=== PATIENT | male | born 1970 | race Caucasian/White ===

== ENCOUNTER 2017-08-20 16:42 | Observation (INO) | payer OTHER ==
[2017-08-20] VITALS (7 sets, daily range): BP systolic 123–150; BP diastolic 65–75; PULSE 75–96; RESP 15–18; TEMP 97–98.9; O2SAT 81–100
[~2017-08-20] VITALS: Ht 170.2 cm; Wt 124.5 kg
[~2017-08-20 16:42] MED LIST: AMLO5TAB22 PO; ASPI81TA82 PO; ATEN-100 PO; ATOR80TA PO; CYCL1PAK PO; DIPH2%T PO; EZET10 PO; FENO145T2 PO; IMDU30TA PO; LISI-366 PO; METH10TA PO; METO10 PO; NITR.4 SL; PANT20 PO; PHEN37.5 PO; POTA99TA12 PO; STOO100T PO; ULTR50TA PO
--- NOTE | 2017-08-20 17:04 | PD ---
HPI Chief Complaint: Chest Pain Time Seen by Provider: 17:00 Travel History International Travel<30 days: No Contact w/Intl Traveler<30days: No Traveled to known affect area: No History of Present Illness HPI 47-year-old male with history of multiple MIs in the past, hypertension, 5 stents, presents to the ER today with substernal chest pressures that started yesterday, heart racing, heart rate in the 130s before he started his beta daniel yesterday. He states that the chest discomfort has not improved. He states his currently a 5 out of 10. He denies any nausea, vomiting, but complains of small shortness of breath. He has been coughing with small amount of phlegm. He denies any fevers or other symptoms. Modifying Factors: None Associated Signs & Symptoms: Palpitations, shortness of breath, chest discomfort Risk Factors: MIs, cardiac stent, tachycardia dysrhythmia PFSH Past Medical History Hx Anticoagulant Therapy: Yes Cancer: No Cardiac Catheterization: Yes Cardiovascular Problems: Yes High Cholesterol: Yes Coronary Artery Disease: Yes Diabetes: No Diminished Hearing: No Endocrine: No GERD: Yes Genitourinary: No Hiatal Hernia: Yes Hypertension: Yes Immune Disorder: No Musculoskeletal: Yes (Herniated disc , Chronic Back pain ) Neurologic: No Psychiatric: No Reproductive: No Respiratory: No Immunizations Current: No Myocardial Infarction: Yes Influenza Vaccination: No Past Surgical History Appendectomy: Yes Cardiac Surgery: Yes (CATH 09/30/12) Coronary Stent: Yes (5) Other Surgery: Yes Family History Family Myocardial Infarction: Yes Social History Alcohol Use: No (stop drinking - Oct 2012 ) Tobacco Use: Yes (1-5 cig per day ) Substance Use: No Allergies-Medications (Allergen,Severity, Reaction): Coded Allergies: Sulfa (Sulfonamide Antibiotics) (Unverified Allergy, Severe, swelling. , ) erythromycin base (Unverified Allergy, Severe, vomit, 07/17/17) all mycins iodine (Unverified Allergy, Severe, Anaphylaxis, 07/17/17) mold (Unverified Allergy, Severe, swelling not breath well, 07/17/17) penicillin G (Unverified Allergy, Severe, swelling vomit, 07/17/17) potassium iodide (Unverified Allergy, Severe, Anaphylaxis, 07/17/17) povidone-iodine (Unverified Allergy, Severe, Anaphylaxis, 07/17/17) red dye (Unverified Allergy, Severe, Anaphylaxis, 07/17/17) red dye # 40 is the worst. sodium iodide (Unverified Allergy, Severe, Anaphylaxis, 07/17/17) sodium iodide (Unverified Allergy, Severe, Anaphylaxis, 07/17/17) duloxetine (Unverified Allergy, Unknown, 07/17/17) Reported Meds & Prescriptions Reported Meds & Active Scripts Active Reported Tramadol (Tramadol HCl) 50 Mg Tab 100 Mg PO TID Trazodone (Trazodone HCl) 100 Mg Tablet 100 Mg PO HS PRN Benazepril (Benazepril HCl) 40 Mg Tab 40 Mg PO DAILY Fenofibrate 160 Mg Tab 160 Mg PO DAILY Nifedipine ER 24 HR (Nifedipine) 60 Mg Tab 60 Mg PO DAILY Atorvastatin (Atorvastatin Calcium) 80 Mg Tab 80 Mg PO DAILY Spironolactone 25 Mg Tab 25 Mg PO DAILY Protonix (Pantoprazole Sodium) 40 Mg Tab 40 Mg PO BID Take 30 minutes before breakfast and dinner Adderall Xr 24 HR (Amphetamine/Dextroamphetamine) 15 Mg Cap 15 Mg PO DAILY Once daily in the morning. Flexeril (Cyclobenzaprine HCl) 10 Mg Tab 10 Mg PO DAILY PRN Morphine ER (Morphine Sulfate) 30 Mg Tab 30 Mg PO TID Zetia (Ezetimibe) 10 Mg Tab 10 Mg PO DAILY Metoprolol Tartrate 50 Mg Tab 75 Mg PO BID Review of Systems Except as stated in HPI: all other systems reviewed are Neg Physical Exam Narrative GENERAL: [Well-developed middle age white male patient who is currently in mild distress. Awake and oriented 3. SKIN: Focused skin assessment warm/dry. HEAD: Atraumatic. Normocephalic. EYES: Pupils equal and round. No scleral icterus. No injection or drainage. ENT: No nasal bleeding or discharge. Mucous membranes pink and moist. NECK: Trachea midline. No JVD. CARDIOVASCULAR: Regular rate and rhythm. No murmur appreciated. Pulses are present and equal bilaterally. RESPIRATORY: No accessory muscle use. Clear to auscultation. Breath sounds equal bilaterally. GASTROINTESTINAL: Abdomen soft, non-tender, nondistended. Hepatic and splenic margins not palpable. MUSCULOSKELETAL: No obvious deformities. No clubbing. No cyanosis. No edema. NEUROLOGICAL: Awake and alert. No obvious cranial nerve deficits. Motor grossly within normal limits. Normal speech. PSYCHIATRIC: Appropriate mood and affect; insight and judgment normal. Data Data Last Documented VS Vital Signs Date Time Temp Pulse Resp B/P (MAP) Pulse Ox O2 Delivery O2 Flow Rate FiO2 08/20/17 17:11 18 99 Room Air 08/20/17 16:58 91 08/20/17 16:54 98.9 Orders Orders Electrocardiogram (08/20/17 17:01) Ckmb (Isoenzyme) Profile (08/20/17 17:) Complete Blood Count With Diff (08/20/17 17:) Comprehensive Metabolic Panel (08/20/17 17:01) Magnesium (Mg) (08/20/17 17:) Prothrombin Time / Inr (Pt) (08/20/17 17:) Act Partial Throm Time (Ptt) (08/20/17 17:01) Troponin I (08/20/17 17:01) Ecg Monitoring (08/20/17 17:) Bilateral Bp Monitoring (08/20/17 17:) Iv Access Insert/Monitor (08/20/17 17:01) Oximetry (08/20/17 17:01) Oxygen Administration (08/20/17 17:01) Sodium Chloride 0.9% Flush (Ns Flush) (08/20/17 17:15) Aspirin (Aspirin) (08/20/17 17:15) Chest, Single Ap (08/20/17 17:18) Labs Laboratory Tests Test 08/20/17 17:05 08/20/17 18:15 White Blood Count 12.7 TH/MM3 Red Blood Count 4.63 MIL/MM3 Hemoglobin 14.4 GM/DL Hematocrit 43.0 % Mean Corpuscular Volume 92.8 FL Mean Corpuscular Hemoglobin 31.1 PG Mean Corpuscular Hemoglobin Concent 33.6 % Red Cell Distribution Width 13.6 % Platelet Count 318 TH/MM3 Mean Platelet Volume 7.4 FL Neutrophils (%) (Auto) 69.5 % Lymphocytes (%) (Auto) 22.5 % Monocytes (%) (Auto) 6.9 % Eosinophils (%) (Auto) 0.7 % Basophils (%) (Auto) 0.4 % Neutrophils # (Auto) 8.8 TH/MM3 Lymphocytes # (Auto) 2.8 TH/MM3 Monocytes # (Auto) 0.9 TH/MM3 Eosinophils # (Auto) 0.1 TH/MM3 Basophils # (Auto) 0.1 TH/MM3 CBC Comment DIFF FINAL Differential Comment Prothrombin Time 10.3 SEC Prothromb Time International Ratio 0.9 RATIO Activated Partial Thromboplast Time 27.5 SEC Blood Urea Nitrogen 12 MG/DL Creatinine 1.24 MG/DL Random Glucose 91 MG/DL Albumin 3.6 GM/DL Calcium Level 8.8 MG/DL Magnesium Level 2.2 MG/DL Aspartate Amino Transf (AST/SGOT) 15 U/L Alanine Aminotransferase (ALT/SGPT) 24 U/L Sodium Level 138 MEQ/L Potassium Level 3.9 MEQ/L Chloride Level 105 MEQ/L Carbon Dioxide Level 27.4 MEQ/L Anion Gap 6 MEQ/L Estimat Glomerular Filtration Rate 62 ML/MIN [facility] Medical Decision Making Medical Screen Exam Complete: Yes Emergency Medical Condition: Yes Medical Record Reviewed: Yes Interpretation(s) EKG shows normal sinus rhythm at a rate of 92 bpm with no signs of acute ST-T changes. Last 24 hours Impressions Chest X-Ray 08/20/17 3588 Signed Impressions: Service Date/Time: Sunday, August 20, 2017 17:23 - CONCLUSION: No acute disease. Arnoldo Houston MD Laboratory Tests Test 08/20/17 17:05 08/20/17 18:15 White Blood Count 12.7 TH/MM3 (4.0-11.0) Neutrophils # (Auto) 8.8 TH/MM3 (1.8-7.7) Estimat Glomerular Filtration Rate 62 ML/MIN (>89) Differential Diagnosis Chest pains, shortness of breath, palpitations: Tachycardia dysrhythmias versus pneumonia versus ACS Narrative Course Patient has been given aspirin. EKG did not show any signs of acute changes. Workup was initiated in the ER. Physician Communication Physician Communication Case is signed out to Dr. Harper at 7 PM pending lab work. Patient will need further cardiac evaluation, awaiting lab work for further disposition. Diagnosis Primary Impression: Chest pain Admitting Information Admitting Physician Requests: it Yogesh Taylor MD Aug 20, 2017 17:04
[2017-08-20] MEDS ORDERED: SODIUM CHLORIDE 0.9% FLUSH 10 ML FLUSH IVF PRN (17:15)
[2017-08-20] MEDS ORDERED: ASPIRIN 325 MG TAB PO ONE (17:15)
[2017-08-20 17:26] LABS: AUTOMATED NEUTROPHIL # 8.8 TH/MM3 (1.8-7.7); BASOPHIL # 0.1 TH/MM3 (0-0.2); BASOPHIL % 0.4 % (0.0-2.0); EOSINOPHIL # 0.1 TH/MM3 (0-0.4); EOSINOPHIL % 0.7 % (0.0-4.0); HEMO FLAGS DIFF FINAL; LYMPH % 22.5 % (9.0-44.0); LYMPHOCYTE # 2.8 TH/MM3 (1.0-4.8); MEAN CELL VOLUME 92.8 FL (80.0-100.0); MEAN CORPUSCULAR HEMOGLOBIN 31.1 PG (27.0-34.0); MEAN CORPUSCULAR HGB CONC 33.6 % (32.0-36.0); MONO % 6.9 % (0.0-8.0); NEUT % 69.5 % (16.0-70.0); PLATELET COUNT 318 TH/MM3 (150-450); RED BLOOD COUNT 4.63 MIL/MM3 (4.50-5.90); RED CELL DISTRIBUTION WIDTH 13.6 % (11.6-17.2); WHITE BLOOD COUNT 12.7 TH/MM3 (4.0-11.0)
[2017-08-20] MEDS ORDERED: ATOR1TAB18 PO (17:41)
[2017-08-20] MEDS ORDERED: SPIR25TA PO (17:41)
[2017-08-20] MEDS ORDERED: FENO160T PO (17:41)
[2017-08-20] MEDS ORDERED: CYCL1TAB29 PO (17:41)
[2017-08-20] MEDS ORDERED: ZETI10TA5 PO (17:41)
[2017-08-20] MEDS ORDERED: PROT40TA PO (17:41)
[2017-08-20] MEDS ORDERED: ADDE15XR PO (17:41)
[2017-08-20] MEDS ORDERED: TRAM50TA PO (17:41)
[2017-08-20] MEDS ORDERED: MORP1TAB25 PO (17:41)
[2017-08-20] MEDS ORDERED: TRAZ100T6 PO (17:41)
[2017-08-20] MEDS ORDERED: METO50TA PO (17:41)
[2017-08-20] MEDS ORDERED: BENA40TA PO (17:41)
[2017-08-20] MEDS ORDERED: NIFE60TA58 PO (17:41)
--- NOTE | 2017-08-20 17:42 | RADRPT ---
EXAM DATE/TIME: 08/20/2017 17:23 [place] COMPARISON: No previous studies available for comparison. INDICATIONS : Chest pain. MEDICAL HISTORY : None. SURGICAL HISTORY : None. ENCOUNTER: Initial ACUITY: 1 day PAIN SCORE: 12/11 LOCATION: Bilateral chest FINDINGS: A single view of the chest demonstrates the lungs to be symmetrically aerated without evidence of mas s, infiltrate or effusion. The cardiomediastinal contours are unremarkable. Osseous structures are intact. CONCLUSION: No acute disease. Arnoldo Houston MD on August 20, 2017 at 17:40 Board Certified Radiologist. This report was verified electronically.
[2017-08-20 17:49] LABS: APTT (PATIENT) 27.5 SEC (24.3-30.1); INTERNATIONAL NORMALIZED RATIO 0.9 RATIO; PROTHROMBIN TIME - PATIENT 10.3 SEC (9.8-11.6)
[2017-08-20 19:05] LABS: ALT (GPT) 24 U/L (12-78); ANION GAP 6 MEQ/L (5-15); AST (GOT) 15 U/L (15-37); BICARBONATE 27.4 MEQ/L (21.0-32.0); BLOOD UREA NITROGEN 12 MG/DL (7-18); CHLORIDE 105 MEQ/L (98-107); GLOMERULAR FILTRATION RATE 62 ML/MIN (>89); MAGNESIUM 2.2 MG/DL (1.5-2.5); POTASSIUM 3.9 MEQ/L (3.5-5.1); SODIUM (NA) 138 MEQ/L (136-145)
[2017-08-20 19:09] LABS: ALKALINE PHOSPHATASE 46 U/L (45-117); TOTAL BILIRUBIN ADULT 0.3 MG/DL (0.2-1.0)
[2017-08-20 19:13] LABS: CREATINE KINASE 80 U/L (39-308)
[2017-08-20] MEDS: NITROGLYCERIN 0.4 MG SL 25 TABS/BTL SL SCH ×3 (20:47→20:55)
[2017-08-20] MEDS ORDERED: IOHEXOL 350 MG/ML 100 ML BTL (for Cath Lab) OTHER ONE (21:06)
--- NOTE | 2017-08-20 21:33 | PD ---
Physical Exam Date Seen by Provider: Aug 20, 2017 Data Data Last Documented VS Vital Signs Date Time Temp Pulse Resp B/P (MAP) Pulse Ox O2 Delivery O2 Flow Rate FiO2 08/20/17 20:52 75 15 123/65 (84) 100 08/20/17 17:11 Room Air 08/20/17 16:54 98.9 Orders Orders Electrocardiogram (08/20/17 17:01) Ckmb (Isoenzyme) Profile (08/20/17 17:01) Complete Blood Count With Diff (08/20/17 17:) Comprehensive Metabolic Panel (08/20/17 17:01) Magnesium (Mg) (08/20/17 17:01) Prothrombin Time / Inr (Pt) (08/20/17 17:01) Act Partial Throm Time (Ptt) (08/20/17 17:01) Troponin I (08/20/17 17:01) Ecg Monitoring (08/20/17 17:01) Bilateral Bp Monitoring (08/20/17 17:01) Iv Access Insert/Monitor (08/20/17 17:) Oximetry (08/20/17 17:01) Oxygen Administration (08/20/17 17:01) Sodium Chloride 0.9% Flush (Ns Flush) (08/20/17 17:15) Aspirin (Aspirin) (08/20/17 17:15) Chest, Single Ap (08/20/17 17:18) Nitroglycerin Sl (Nitrostat Sl) (08/20/17 20:45) Admit Order (Ed Use Only) (08/20/17 21:03) Activity Bed Rest With Brp (08/20/17 21:05) Vital Signs (Adult) Q4H (08/20/17 21:05) Cardiac Rhythm .As Directed (08/20/17 21:05) Notify Dr: Other .PRN (08/20/17 21:05) Notify Parameters (08/20/17 21:05) Ckmb (Isoenzyme) Profile (08/20/17 21:05) Ckmb (Isoenzyme) Profile (08/21/17 00:05) Troponin I (08/20/17 21:05) Troponin I (08/21/17 00:05) Electrocardiogram (08/20/17 21:05) Electrocardiogram (08/21/17 00:05) ^ Obtain (08/20/17 21:05) Avionics Repair Technician / Telemetry [email or web address] (08/20/17 21:05) Labs Laboratory Tests Test 08/20/17 17:05 08/20/17 18:15 White Blood Count 12.7 TH/MM3 Red Blood Count 4.63 MIL/MM3 Hemoglobin 14.4 GM/DL Hematocrit 43.0 % Mean Corpuscular Volume 92.8 FL Mean Corpuscular Hemoglobin 31.1 PG Mean Corpuscular Hemoglobin Concent 33.6 % Red Cell Distribution Width 13.6 % Platelet Count 318 TH/MM3 Mean Platelet Volume 7.4 FL Neutrophils (%) (Auto) 69.5 % Lymphocytes (%) (Auto) 22.5 % Monocytes (%) (Auto) 6.9 % Eosinophils (%) (Auto) 0.7 % Basophils (%) (Auto) 0.4 % Neutrophils # (Auto) 8.8 TH/MM3 Lymphocytes # (Auto) 2.8 TH/MM3 Monocytes # (Auto) 0.9 TH/MM3 Eosinophils # (Auto) 0.1 TH/MM3 Basophils # (Auto) 0.1 TH/MM3 CBC Comment DIFF FINAL Differential Comment Prothrombin Time 10.3 SEC Prothromb Time International Ratio 0.9 RATIO Activated Partial Thromboplast Time 27.5 SEC Blood Urea Nitrogen 12 MG/DL Creatinine 1.24 MG/DL Random Glucose 91 MG/DL Total Protein 6.8 GM/DL Albumin 3.6 GM/DL Calcium Level 8.8 MG/DL Magnesium Level 2.2 MG/DL Alkaline Phosphatase 46 U/L Aspartate Amino Transf (AST/SGOT) 15 U/L Alanine Aminotransferase (ALT/SGPT) 24 U/L Total Bilirubin 0.3 MG/DL Sodium Level 138 MEQ/L Potassium Level 3.9 MEQ/L Chloride Level 105 MEQ/L Carbon Dioxide Level 27.4 MEQ/L Anion Gap 6 MEQ/L Estimat Glomerular Filtration Rate 62 ML/MIN Total Creatine Kinase 80 U/L Troponin I LESS THAN 0.02 NG/ML [facility] Medical Record Reviewed: Yes Supervised Visit with SUSHMA: No Narrative Course Please see previous provider's chart for full hpi and workup of patient 47-year-old male with history of coronary artery disease, presents to emergency with complaints of chest pain. Patient is chest pain-free after 1 sublingual nitroglycerin. EKG with no concerning st or t wave changes. Plan to obs in chest pain unit. Patient agreeable to plan of care Diagnosis Primary Impression: Chest pain Admitting Information Admitting Physician Requests: Observation Rochelle Harper DO Aug 20, 2017 21:32
[2017-08-20 22:41] LABS: CREATINE KINASE 78 U/L (39-308)
[2017-08-21] VITALS (12 sets, daily range): BP systolic 107–146; BP diastolic 67–80; PULSE 68–90; RESP 18–22; TEMP 97.5–98.3; O2SAT 95–98
[2017-08-21 00:45] LABS: CREATINE KINASE 64 U/L (39-308)
[2017-08-21] MEDS ORDERED: CYCLOBENZAPRINE HCL 10 MG TAB PO PRN (08:30)
[2017-08-21] MEDS ORDERED: REGADENOSON INJ 0.4 MG/5 ML SYR ONE (09:57)
[2017-08-21] MEDS ORDERED: METOPROLOL TARTRATE 50 MG TAB PO SCH (10:00)
--- NOTE | 2017-08-21 10:17 | HHI.HP ---
HPI Primary Care Physician Non-Staff Chief Complaint Fast heart rate History of Present Illness This is a 47-year-old male with history of CAD that presents to ED via private vehicle with a complaint of elevated heart rate. Patient states that he was told by his primary care physician no longer could get atenolol and he ran out of it one week ago. He states his heart rate was high as 148 yesterday and it would not happen he started get some discomfort in his chest and some nausea. He states his physician recent change him to metoprolol. He began that yesterday. He states it is not same type discomfort he gets with his heart issues. He is currently not followed by wire drawer. The discomfort was a 5 out of 10. Mildly short of breath. Upon reviewing records she had an abnormal Lexiscan in 2015 followed by cardiac catheterization by Dr. Grimes showing a totally excluded distal circumflex and RCA with collateralization. He states he is compliant with all medications. Review of Systems General: Patient denies fevers, chills recent, and recent travel HEENT: Patient denies headache, sore throat, difficulty swallowing. Cardiovascular: Has the chest discomfort as mentioned above. States heart rate has been elevated prior to getting metoprolol. Denies sensation of heart beating irregularly. No syncope. Denies diaphoresis. Respiratory: Mildly short of breath. Denies inspirational chest discomfort. Denies coughing wheezing or hemoptysis. GI: Nauseous. Patient denies vomiting, diarrhea, abdominal pain, bloody stools. Musculoskeletal: Patient denies joint pain or edema. Denies calf pain or edema. Neurovascular: Patient denies numbness, tingling, weakness in extremities. Denies headache. Endocrine: Denies polyuria and polydipsia. Hematologic: Denies easy bruising. Skin: Denies rash or itching. Past Family Social History Allergies: Coded Allergies: Sulfa (Sulfonamide Antibiotics) (Unverified Allergy, Severe, swelling. , ) erythromycin base (Unverified Allergy, Severe, vomit, 07/17/17) all mycins iodine (Unverified Allergy, Severe, Anaphylaxis, 07/17/17) mold (Unverified Allergy, Severe, swelling not breath well, 07/17/17) penicillin G (Unverified Allergy, Severe, swelling vomit, 07/17/17) potassium iodide (Unverified Allergy, Severe, Anaphylaxis, 07/17/17) povidone-iodine (Unverified Allergy, Severe, Anaphylaxis, 07/17/17) red dye (Unverified Allergy, Severe, Anaphylaxis, 07/17/17) red dye # 40 is the worst. sodium iodide (Unverified Allergy, Severe, Anaphylaxis, 07/17/17) sodium iodide (Unverified Allergy, Severe, Anaphylaxis, 07/17/17) duloxetine (Unverified Allergy, Unknown, 07/17/17) Past Medical History CAD. Hypertension, hyperlipidemia, GERD. Denies diabetes. Past Surgical History Cardiac catheterizations with interventions. Most recently cardiac catheterization chills and 15 with medical management. Reported Medications Reported Meds & Active Scripts Active Reported Tramadol (Tramadol HCl) 50 Mg Tab 100 Mg PO TID Trazodone (Trazodone HCl) 100 Mg Tablet 100 Mg PO HS PRN Benazepril (Benazepril HCl) 40 Mg Tab 40 Mg PO DAILY Fenofibrate 160 Mg Tab 160 Mg PO DAILY Nifedipine ER 24 HR (Nifedipine) 60 Mg Tab 60 Mg PO DAILY Atorvastatin (Atorvastatin Calcium) 80 Mg Tab 80 Mg PO DAILY Spironolactone 25 Mg Tab 25 Mg PO DAILY Protonix (Pantoprazole Sodium) 40 Mg Tab 40 Mg PO BID Take 30 minutes before breakfast and dinner Adderall Xr 24 HR (Amphetamine/Dextroamphetamine) 15 Mg Cap 15 Mg PO DAILY Once daily in the morning. Flexeril (Cyclobenzaprine HCl) 10 Mg Tab 10 Mg PO DAILY PRN Morphine ER (Morphine Sulfate) 30 Mg Tab 30 Mg PO TID Zetia (Ezetimibe) 10 Mg Tab 10 Mg PO DAILY Metoprolol Tartrate 50 Mg Tab 75 Mg PO BID Active Ordered Medications Current Medications Medications (Trade) Dose Ordered Sig/Gretta Route Start Time Stop Time Status Last Admin (NS Flush) 2 ml UNSCH PRN IVF 08/20/17 17:15 (Lipitor) 80 mg DAILY PO 08/21/17 10:00 (Flexeril) 10 mg DAILY PRN PO 08/21/17 08:30 (Zetia) 10 mg DAILY PO 08/21/17 10:00 (Oramorph Sr) 30 mg TID PO 08/21/17 09:00 UNV (Procardia Xl) 60 mg DAILY PO 08/21/17 10:00 (Protonix) 40 mg BID PO 08/21/17 10:00 (Aldactone) 25 mg DAILY PO 08/21/17 10:00 (Ultram) 100 mg TID PRN PO 08/21/17 08:30 (Prinivil) 40 mg DAILY PO 08/21/17 10:00 (Tricor) 145 mg DAILY PO 08/21/17 10:00 Non-Formulary Medication 100 mg HS PRN PO 08/21/17 08:30 UNV (Lopressor) 75 mg BID PO 08/21/17 10:00 Family History There is family history of CAD. Social History Patient may smoke an occasional cigarette. Denies alcohol. Denies illicit drugs. Physical Exam Vital Signs Vital Signs Date Time Temp Pulse Resp B/P (MAP) Pulse Ox O2 Delivery O2 Flow Rate FiO2 08/21/17 08:20 98.3 90 22 138/67 (90) 96 08/21/17 07:30 68 08/21/17 04:46 97.8 89 18 131/70 (90) 96 08/21/17 04:01 72 08/21/17 00:01 84 08/20/17 23:00 96 08/20/17 22:50 97.0 82 16 136/68 (90) 98 08/20/17 20:52 75 15 123/65 (84) 100 08/20/17 20:52 15 08/20/17 19:20 82 15 141/69 (93) 100 08/20/17 17:11 18 99 Room Air 08/20/17 16:58 91 18 97 Room Air 08/20/17 16:54 98.9 85 18 136/65 (88) 97 08/20/17 16:46 98.3 91 16 150/75 (100) 99 Physical Exam GENERAL: This is a well-nourished, well-developed patient, in no apparent distress. Patient speaks in clear complete sentences. Patient is pleasant. He is obese at 130 kg. HEENT: Head is atraumatic and normocephalic. Neck is supple without lymphadenopathy and trachea is midline. No JVD or carotid bruits. CARDIOVASCULAR: Regular rate and rhythm without murmurs, gallops, or rubs. RESPIRATORY: Clear to auscultation. Breath sounds equal bilaterally. No wheezes , rales, or rhonchi. Chest wall is nontender. No use of accessory muscles. GASTROINTESTINAL: Abdomen is nontender, nondistended. Abdomen soft. No obvious pulsatile mass or bruit. No CVA tenderness. Strong femoral pulses bilaterally. Normal bowel sounds in all quadrants. MUSCULOSKELETAL: Patient is moving upper and lower extremities freely. No calf tenderness or edema, no Homans sign. Strong pulses in upper and lower extremities. NEUROLOGICAL: Patient is alert and oriented. Cranial nerves 2-12 are grossly intact. No focal deficits and speech is clear. SKIN: No rash and turgor is normal. Laboratory Laboratory Tests Test 08/20/17 17:05 08/20/17 18:15 08/20/17 21:52 08/21/17 00:10 White Blood Count 12.7 Red Blood Count 4.63 Hemoglobin 14.4 Hematocrit 43.0 Mean Corpuscular Volume 92.8 Mean Corpuscular Hemoglobin 31.1 Mean Corpuscular Hemoglobin Concent 33.6 Red Cell Distribution Width 13.6 Platelet Count 318 Mean Platelet Volume 7.4 Neutrophils (%) (Auto) 69.5 Lymphocytes (%) (Auto) 22.5 Monocytes (%) (Auto) 6.9 Eosinophils (%) (Auto) 0.7 Basophils (%) (Auto) 0.4 Neutrophils # (Auto) 8.8 Lymphocytes # (Auto) 2.8 Monocytes # (Auto) 0.9 Eosinophils # (Auto) 0.1 Basophils # (Auto) 0.1 CBC Comment DIFF FINAL Differential Comment Prothrombin Time 10.3 Prothromb Time International Ratio 0.9 Activated Partial Thromboplast Time 27.5 Blood Urea Nitrogen 12 Creatinine 1.24 Random Glucose 91 Total Protein 6.8 Albumin 3.6 Calcium Level 8.8 Magnesium Level 2.2 Alkaline Phosphatase 46 Aspartate Amino Transf (AST/SGOT) 15 Alanine Aminotransferase (ALT/SGPT) 24 Total Bilirubin 0.3 Sodium Level 138 Potassium Level 3.9 Chloride Level 105 Carbon Dioxide Level 27.4 Anion Gap 6 Estimat Glomerular Filtration Rate 62 Total Creatine Kinase 80 78 64 Troponin I LESS THAN 0.02 LESS THAN 0.02 LESS THAN 0.02 Result Diagram: 08/20/17 1705 08/20/17 181 Imaging Last 48 hours Impressions Chest X-Ray 08/20/17 1718 Signed Impressions: Service Date/Time: Sunday, August 20, 2017 17:23 - CONCLUSION: No acute disease. Arnoldo Houston MD Course EKGs are sinus rhythm without significant ST segment depressions or elevations. Caprini VTE Risk Assessment Caprini VTE Risk Assessment: No/Low Risk (score <= 1) Caprini Risk Assessment Model Point Value = 1 Point Value = 2 Point Value = 3 Point Value = 5 Age 41-60 Minor surgery BMI > 25 kg/m2 Swollen legs Varicose veins or History of unexplained or recurrent spontaneous Oral contraceptives or hormone replacement Sepsis (< 1 month) Serious lung disease, including pneumonia (< 1 month) Abnormal pulmonary function Acute myocardial infarction Congestive heart failure (< 1 month) History of inflammatory bowel disease Medical patient at bed rest Age 61-74 Arthroscopic surgery Major open surgery (> 45 min) Laparoscopic surgery (> 45 min) Malignancy Confined to bed (> 72 hours) Immobilizing plaster cast Central venous access Age >= 75 History of VTE Family history of VTE Factor V Leiden Prothrombin [id number] Lupus anticoagulant Anticardiolipin antibodies Elevated serum homocysteine Heparin-induced thrombocytopenia Other congenital or acquired thrombophilia Stroke (< 1 month) Elective arthroplasty Hip, pelvis, or leg fracture Acute spinal cord injury (< 1 month) Prophylaxis Regimen Total Risk Factor Score Risk Level Prophylaxis Regimen 0-1 Low Early ambulation 2 Moderate Order ONE of the following: *Sequential Compression Device (SCD) *Heparin 5000 units SQ BID 3-4 Higher Order ONE of the following medications: *Heparin 5000 units SQ TID *Enoxaparin/Lovenox 40 mg SQ daily (WT < 150 kg, CrCl > 30 mL/min) *Enoxaparin/Lovenox 30 mg SQ daily (WT < 150 kg, CrCl > 10-29 mL/min) *Enoxaparin/Lovenox 30 mg SQ BID (WT < 150 kg, CrCl > 30 mL/min) AND/OR *Sequential Compression Device (SCD) 5 or more Highest Order ONE of the following medications: *Heparin 5000 units SQ TID (Preferred with Epidurals) *Enoxaparin/Lovenox 40 mg SQ daily (WT < 150 kg, CrCl > 30 mL/min) *Enoxaparin/Lovenox 30 mg SQ daily (WT < 150 kg, CrCl > 10-29 mL/min) *Enoxaparin/Lovenox 30 mg SQ BID (WT < 150 kg, CrCl > 30 mL/min) AND *Sequential Compression Device (SCD) Assessment and Plan Assessment and Plan * Chest pain: Patient has history of CAD. He has had serial cardiac enzymes and EKGs for ruling out purposes and has been seen by Dr. Maury Grimes of cardiology in the chest [facility]. He will undergo a Lexiscan be discharged nonischemic. * CAD: We'll reassess with stress testing. He needs to make arrangements to follow-up with outpatient wire drawer. * Hypertension: Continue current medication. * Hyperlipidemia: Continue current medication. * GERD: Continue current medication. Patient is stable at this time. He is agreeable to this plan. Jesse Jerez Aug 21, 2017 10:16
[2017-08-21] MEDS ORDERED: MORPHINE SULFATE 30 MG CONTROLLED RELEASE TAB PO SCH (11:00)
--- NOTE | 2017-08-21 11:18 | EKG ---
Date Performed: 08/21/2017 Time Performed: 00:25:45 PTAGE: 47 years EKG: Sinus rhythm INFERIOR MYOCARDIAL INFARCTION ABNORMAL ECG PREVIOUS TRACING : 08/20/2017 22.11 Since previous tracing, no significant change noted DOCTOR: Maury Grimes Interpretating Date/Time 08/21/2017 11:18:14
--- NOTE | 2017-08-21 11:19 | EKG ---
Date Performed: 08/20/2017 Time Performed: 16:52:47 PTAGE: 47 years EKG: Sinus rhythm INFERIOR NE INDETERMINANT AGE NO PREVIOUS TRACING DOCTOR: Maury Grimes Interpretating Date/Time 08/21/2017 11:19:42
--- NOTE | 2017-08-21 11:19 | EKG ---
Date Performed: 08/20/2017 Time Performed: 22:11:21 PTAGE: 47 years EKG: Sinus rhythm INFERIOR GA PREVIOUS TRACING : 08/20/2017 16.52 Since previous tracing, no significant change noted DOCTOR: Maury Grimes Interpretating Date/Time 08/21/2017 11:18:54
[2017-08-21] MEDS: ATORVASTATIN 80 MG TAB PO SCH (12:23)
[2017-08-21] MEDS: traMADol HCL 50 MG TAB PO PRN ×2 (12:23→20:04)
[2017-08-21] MEDS: SPIRONOLACTONE 25 MG TAB PO SCH (12:23)
[2017-08-21] MEDS: METOPROLOL TARTRATE 25 MG TAB PO SCH ×2 (12:24→20:04)
[2017-08-21] MEDS: PANTOPRAZOLE SOD 40 MG DELAYED RELEASE TAB PO SCH ×2 (12:24→20:04)
[2017-08-21] MEDS: EZETIMIBE 10 MG TAB PO SCH (12:24)
[2017-08-21] MEDS: FENOFIBRATE 145 MG TAB PO SCH (12:24)
[2017-08-21] MEDS: NIFEdipine 60 MG SUSTAINED RELEASE TAB PO SCH (12:24)
[2017-08-21] MEDS: LISINOPRIL 20 MG TAB PO SCH (12:25)
--- NOTE | 2017-08-21 13:51 | RADRPT ---
EXAM DATE/TIME: 08/21/2017 09:29 [place] COMPARISON: MYOCARDIAL PERF PHARM SPECT, GATED W/EF, July 22, 2014, 9:08. INDICATIONS : Chest pain for one day. Angina. DOSE: 35.0 mCi Tc99m Myoview at stress. 11.0 mCi Tc99m Myoview at rest. 0.4 mg Lexiscan STRESS SYMPTOMS: Chest tightness. EJECTION FRACTION: 66% MEDICAL HISTORY : Hypertension. SURGICAL HISTORY : Appendectomy. Coronary artery stent. ENCOUNTER: Initial ACUITY: 1 day PAIN SCALE: 5/10 LOCATION: Substernal chest TECHNIQUE: The patient underwent pharmacologic stress with infusion of prescribed dose. Continuous ECG tracing was monitored during stress. Gated SPECT imaging was performed after stress and conventional SPECT i maging was performed at rest. The examination was performed on a SPECT/CT scanner, both attenuation and non-corrected datasets were reviewed. FINDINGS: DISTRIBUTION: The maximum perfused segment at stress is in the septal wall. Image set was normalized to this locati on PERFUSION STUDY: The pattern of perfusion at stress shows 23% redistribution in segments of the anterior wall and the apex concerning for ischemia. Similar findings are identified in the high inferior wall/base. GATED STUDY: Mild septal hypokinesis with preserved ejection fraction. CONCLUSION: 1. Multiple areas of ischemia. 20-30% redistribution in segments of the anterior and inferior segment s the as well as the apex. Findings could be explained by an LAD lesion with left coronary dominance. 2. Mild septal hypokinesis with preserved ejection fraction RISK CATEGORY: High (>3% Annual Mortality Rate) Anjel Treviño MD on August 21, 2017 at 13:34 Board Certified Radiologist. This report was verified electronically.
[2017-08-21] MEDS ORDERED: methylPREDNISolone SOD SUCC 125 MG/2 ML VIAL IV PUSH ONE (14:30)
[2017-08-21] MEDS ORDERED: FAMOTIDINE 20 MG/2 ML VIAL IV PUSH ONE (14:30)
[2017-08-21] MEDS ORDERED: HEPARIN-NS/PF INJ 1,000 ML ONE (15:24)
[2017-08-21] MEDS ORDERED: MIDAZOLAM HCL 5 MG/5 ML VIAL ONE ×2 (15:26→15:48)
[2017-08-21] MEDS ORDERED: diphenhydrAMINE HCL 50 MG/ML VIAL ONE (15:29)
--- NOTE | 2017-08-21 16:07 | MB ---
cc: REBECCA KAYE DATE OF CONSULTATION: 08/21/2017 HISTORY OF PRESENT ILLNESS A 47-year-old white male with a history of coronary artery disease with total occlusion of the distal circumflex in the right coronary artery with collaterals on the catheterization in 2014, presented with elevated heart rate and chest pain. He ran out of his beta-daniel recently. He also has had mild shortness of breath. His nuclear marker perfusion study was abnormal and showed anterior, inferior and apical ischemia with overall preserved left ventricular systolic function. PAST MEDICAL HISTORY Positive for: 1. Coronary artery disease as above. 2. History of hypertension. 3. Dyslipidemia. 4. Gastroesophageal reflux disease. 5. Previous coronary interventions. MEDICATIONS Medications include: 1. Tramadol. 2. Trazadone. 3. Benazepril. 4. Fenofibrate. 5. Nifedipine ER. 6. Atorvastatin 80. 7. Spironolactone. 8. Protonix. 9. Adderall. 10. Flexeril. 11. Morphine. 12. Zetia. 13. Metoprolol. ALLERGIES SULFA, ERYTHROMYCIN, IODINE, MOLD, PENICILLIN, POTASSIUM IODIDE, POVIDONE IODIDE, RED DYE, SODIUM IODIDE, DULOXETINE. SOCIAL HISTORY The patient smokes cigarettes occasionally. He does not drink alcohol. FAMILY HISTORY Positive for heart disease. REVIEW OF SYSTEMS Otherwise negative. PHYSICAL EXAMINATION VITAL SIGNS: Blood pressure 138/67, pulse 90 and regular. HEENT: Negative. NECK: 2+ carotid upstrokes. No bruits. LUNGS: Clear. HEART: Regular with no murmur, gallop or rub. ABDOMEN: Soft, no bruits. EXTREMITIES: No edema. 2+ distal pulses. NEUROLOGIC: Grossly intact. SKIN: With multiple tattoos. EKG Reviewed and showed normal sinus rhythm with normal axis intervals and small inferior Q-waves. LABORATORY DATA Hemoglobin 14.4, potassium 3.9, creatinine 1.2, troponin negative x3. CK 80, 78, and 64. AST and ALT normal. DIAGNOSIS 1. Angina. 2. Abnormal nuclear marker perfusion study. 3. Multivessel coronary artery disease. 4. Hypertension. 5. Dyslipidemia. 6. History of smoking. DISPOSITION Mr. Terry will undergo cardiac catheterization and coronary intervention if necessary. He understands the risks and benefits and wishes to proceed. He has been premedicated for his contrast allergy. We will continue aggressive medical management of his cardiac risk factors. MD MARIXA Rocha/FRANCIA /3:11 PM /3:26 PM
--- NOTE | 2017-08-21 16:39 | CATHPROC ---
Startist HIS Report Study Information Study Number Admission Scheduled Start Study Start [id number] Aug 20 2017 9:05PM 08/21/2017 Aug 21 2017 3:19PM [place] Service Cardiac Catheterization Admit Source Facility Department Emergency department [facility] - Spanish Literature Professor Physician and Clinical Staff Initial Maria A De La Cruz Motorcycle Repairer Clary Gillespie,GREGORY Other Lucas Dunne RCIS(BS) Recorder Kasandra Zuniga,(R) (BS) Scrub Zina Wright RCIS TECH2 Procedures Performed Procedure Location (Site) Vessel Name Angiogram LV LV Ventricle Coronary Angiograms LCA Left Coronary Coronary Angiograms RCA Right Coronary L Heart Cath Equipment Time Business Account Specialist Description Size Mfg Part Number Used/Scraped TRANSDUCER, TRVicept TherapeuticsAVE [id number] 15:21 Howbuy * Used W/STOCKCOCK *[id number] 16:18 Nasseo MEDICAL VASCADE, FR5 CLOSURE SYSTEM FR 5 Used *[id number] *[id number] *[id number] *[id number] 15:21 MEDLINE INDUSTRIES PACK, CCL CUSTOM * Used *[id number] 15:21 Dealdrive PACER PEN, SKIN DUAL W/ RULER * Used *[id number] 15:21 [employer] WIRE, 3MMJ .035 180CM 180CM Used *[id number] PROBE COVER, STERILE [id number] 15:21 Shareable Social * Used ULTRASOUND W/ GEL *[id number] 15:21 NAMIC MANIFOLD, 4 PORT * Used *[id number] 15:21 NAMIC TUBING, HIGH PRESSURE 48" 48" Used *[id number] 16:06 NYCOMED OMNIPAQUE, 300 MG, 50ML 50ML [id number] Used 15:21 NYCOMED OMNIPAQUE, 350 MG, 150ML 150ML [id number] Used [id number] 15:21 [employer] MEDICAL BLANKET,WARM AIR CCL * Used *[id number] 15:21 TERUMO MEDICAL SHEATH, FR5 TERUMO (10CM) FR 5 Used *[id number] History: Current Medications Medication Dosage/Unit Route Frequency Last Date/Time Taken ASA History: Allergies Allergy Reaction Sulfa (Sulfonamide Antibiotics) swelling. potassium iodide Anaphylaxis sodium iodide Anaphylaxis erythromycin base vomit iodine Anaphylaxis povidone-iodine Anaphylaxis penicillin G swelling vomit duloxetine red dye Anaphylaxis mold swelling not breath well History: Risk Factors Family History of Hypertension Dyslipidemia Previous RI Previous Heart Failure Premature CAD Yes Yes Yes Yes Yes Prior Valve Prior PCI Prior PCIDate Prior CABG Surgery No Yes 08/02/2014 No Cerebrovascular Peripheral Artery Chronic Lung On Dialysis Diabetes Disease Disease Disease No No No Yes No History: Symptoms/Diagnosis Selection Items Chest pain History: Stress Tests Stress or Imaging Studies Performed Yes Standard Exercise Stress Test No Stress Echo No Stress Test SPECT Yes Stress Test CMR No Cardiac CTA Coronary Calcium Score No No History: Other Current Smoker Method Packs a Day Years Used Pack Years Yes Cigarettes 1 30 30 Labs Hgb (g/dl) Hct (%) WBC (l/cumm) Platelets (thousands) 11.60-17.00 35.00-51.00 4.00-11.00 150.00-450.00 14.4 43 12.7 318 Glucose (mg/dl) BUN (mg/dl) Creatinine (mg/dl) BUN:Creatinine (1:x) 74.00-106.00 7.00-18.00 0.50-1.30 10.00-20.00 91 12 1.2 10 Na (meq/l) K (meq/l) 136.00-145.00 3.50-5.10 138 3.9 Troponin I (ng/ml) CPK-MB (ng/ML) 0.02-0.05 0.50-3.60 0.02 Not Drawn Medication Medication Total Dose (Bolus/Oral) Medication Total Dosage/Unit 1% XYLOCAINE 20 mL BENADRYL 50 mg FENTANYL 200 mcg OXYGEN 2 l/min VERSED 8 mg Medications (Bolus/Oral) Medication Time Given Dosage/Unit Administered By Reason BENADRYL 08/21/2017 3:30:12 PM 50 mg Clary Gillespie 50 mg BENADRYL given in lab by Clary Gillespie RN in Left Antecubital via Peripheral IV. OXYGEN 08/21/2017 3:30:55 PM 2 l/min Clary Gillespie 2 l/min OXYGEN given in lab by Clary Gillespie, GREGORY via Nasal. VERSED 08/21/2017 3:33:33 PM 2 mg Clary Gillespie 2 mg VERSED given in lab by Clary Gillespie, GREGORY in Left Antecubital via Peripheral IV. FENTANYL 08/21/2017 3:34:42 PM 50 mcg Hesher, Clary 50 mcg FENTANYL given in lab by Clary Gillespie RN in Left Antecubital via Peripheral IV. FENTANYL 08/21/2017 3:37:41 PM 25 mcg Hesher, Clary 25 mcg FENTANYL given in lab by Clary Gillespie RN in Left Antecubital via Peripheral IV. VERSED 08/21/2017 3:38:01 PM 2 mg Hesher, Clary 2 mg VERSED given in lab by Clary Gillespie RN in Left Antecubital via Peripheral IV. VERSED 08/21/2017 3:46:13 PM 1 mg Hesher, Clary 1 mg VERSED given in lab by Clary Gillespie RN in Left Antecubital via Peripheral IV. FENTANYL 08/21/2017 3:47:30 PM 25 mcg Hesher, Clary 25 mcg FENTANYL given in lab by Clary Gillespie RN in Left Antecubital via Peripheral IV. VERSED 08/21/2017 3:53:20 PM 1 mg Hesher, Clary 1 mg VERSED given in lab by Clary Gillespie RN in Left Antecubital via Peripheral IV. FENTANYL 08/21/2017 3:54:14 PM 25 mcg Hesher, Clary 25 mcg FENTANYL given in lab by Clary Gillespie RN in Left Antecubital via Peripheral IV. VERSED 08/21/2017 3:58:54 PM 1 mg Hesher, Clary 1 mg VERSED given in lab by Clary Gillespie RN in Left Antecubital via Peripheral IV. 1% XYLOCAINE 08/21/2017 4:00:13 PM 20 mL Maria A Donis 20 mL 1% XYLOCAINE given in lab by Maria A Donis in Right Groin via Subcutaneous. FENTANYL 08/21/2017 4:00:25 PM 25 mcg Hesher, Calry 25 mcg FENTANYL given in lab by Clary Gillespie RN in Left Antecubital via Peripheral IV. VERSED 08/21/2017 4:16:30 PM 1 mg Hesher, Clary 1 mg VERSED given in lab by Clary Gillespie RN in Left Antecubital via Peripheral IV. FENTANYL 08/21/2017 4:17:34 PM 50 mcg Hesher, Clary 50 mcg FENTANYL given in lab by Clary Gillespie, RN in Left Antecubital via Peripheral IV. Medication (Drip) Medication Time Given Dosage/Unit Concentration/Unit Diluent (ml) Solution IV Solutions 08/21/2017 3:31:07 PM 0 mL (IV) 500 NaCl .9 IV Solutions given in lab by Clary Gillespie, RN in Left Antecubital via Peripheral IV. Pump/Drip Flow = 100 ml/hr using NaCl .9. Initial Case Assessment Cardiovascular HR Rhythm NIBP Chest Pain 69 reg 139/60 5 Edema Present Skin color Skin None Normal Warm Dry Circulatory - Right Pulses Dorsalis Pedis Femoral 2 2 Scale (0,1,2,3,4,d) Circulatory - Left Pulses Dorsalis Pedis Femoral 2 2 Scale (0,1,2,3,4,d) Circulatory - Lower Extremities Color Lower Right Color Lower Left Normal Normal Neurological State Oriented to time-place- Alert Moves all extremities person Respiration - General Respiration Rate SpO2 (%) (B/min) 16 98 Chronological Log Time Study Chronological Log 15:10:00 Patient premedicated for contrast allergy with solumedrol and pepcid in ED 15:19:21 Patient arrived via Bed. 15:19:22 Patient Name, D.O.B, / Armband Verified By R.N. 15:19:23 Consent signed by the physician and the patient and verified by the Spanish Literature Professor staff. 15:19:29 Pre-op and post- op instructions given; patient acknowledges understanding of instructions. 15:19:31 Verbal Stimulation=2 Physical Stimulation=2 Airway=2 Respiration=2 TOTAL=8. (0=absent, 1=li mited, 2=present) 15:19:33 Presedation assessment performed by Spanish Literature Professor RN. 15:19:35 Patient has been NPO for More than 6Hrs. 15:19:36 Skin Breakdown none per pt 15:19:38 Laquita Prominences Protected 15:25:15 Disposable Defibrillator Pads Placed On Patient. Vitals capture started with the following parameters, Patient=Adult, Interval=5 min, Initial Pr qcsbkd=012 mmHg, 15:26:16 Deflation Rate=5 mmHg, Cuff placed on Right Arm 15:28:20 HR=80 bpm, YVUA=655/60 mmhg, SpO2=97.0 %, Resp=10 B/min, Pain=5, Natacha=10, Jacobo=2 15:30:12 50 mg BENADRYL given in lab by Clary Gillespie RN in Left Antecubital via Peripheral IV. 15:30:55 2 l/min OXYGEN given in lab by Clary Gillespie RN via Nasal. 15:31:06 A # 20 IV was noted in the Antecubital (left). Grade = 0 IV Solutions given in lab by Clary Gillespie RN in Left Antecubital via Peripheral IV. Pump/Dri p Flow = 100 ml/hr using 15:31:07 NaCl .9. 15:31:08 History and physical on the chart or being dictated. Assessment: Initial Case, HR=69 BPM, Rhythm=reg, KIDN=887/60 mmhg, Chest Pain=5, Edema=None, Co amador=Normal, Skin = Warm, Dry Right Pulses: Devan Ped=2, Femoral=2 Left Pulses: Devan Ped=2, Femoral=2 15:31:09 Lower Right Extremities: Color=Normal Lower Left Extremities: Color=Normal Neurological: State=Alert, Ox3, MALDONADO Respiration: Resp=16 B/min, SpO2=98 % 15:31:50 Bilateral groins prepped with 2% chlorhexidine, and with a 3 min. waiting time. 15:31:53 HR=76 bpm, GHDT=822/68 mmhg, SpO2=97.0 %, Resp=15 B/min, Pain=5, Natacha=10, Jacobo=2 15:33:10 Reference ECG taken 15:33:33 2 mg VERSED given in lab by Clary Gillespie RN in Left Antecubital via Peripheral IV. 15:34:42 50 mcg FENTANYL given in lab by Clary Gillespie RN in Left Antecubital via Peripheral IV. 15:36:54 HR=79 bpm, SWNB=085/75 mmhg, SpO2=96.0 %, Resp=15 B/min, Pain=5, Natacha=10, Jacobo=2 15:37:41 25 mcg FENTANYL given in lab by Clary Gillespie RN in Left Antecubital via Peripheral IV. 15:38:01 2 mg VERSED given in lab by Clary Gillespie RN in Left Antecubital via Peripheral IV. 15:39:03 MD paged 15:39:29 MD responded 15:42:40 HR=83 bpm, PHTG=154/63 mmhg, SpO2=98.0 %, Resp=17 B/min, Pain=5, Natacha=10, Jacobo=2 15:44:07 Pressure channel 1 zeroed. 15:46:13 1 mg VERSED given in lab by Clary Gillespie RN in Left Antecubital via Peripheral IV. 15:47:02 HR=83 bpm, IVAA=308/62 mmhg, SpO2=94.0 %, Resp=10 B/min, Pain=5, Natacha=10, Jacobo=2 15:47:30 25 mcg FENTANYL given in lab by Clary Gillespie RN in Left Antecubital via Peripheral IV. 15:51:57 HR=80 bpm, RDEW=105/62 mmhg, SpO2=94.0 %, Resp=16 B/min, Pain=5, Natacha=10, Jacobo=2 15:53:20 1 mg VERSED given in lab by Clary Gillespie RN in Left Antecubital via Peripheral IV. 15:54:14 25 mcg FENTANYL given in lab by Clary Gillespie RN in Left Antecubital via Peripheral IV. 15:56:56 HR=80 bpm, FWES=112/72 mmhg, SpO2=95.0 %, Resp=16 B/min, Pain=5, Natacha=10, Jacobo=2 15:58:54 1 mg VERSED given in lab by Clary Gillespie RN in Left Antecubital via Peripheral IV. Time Out. Correct patient, correct procedure,correct physician, power injector loaded with cont rast with surgical team 15:59:54 present. Time Out Concurred by , individual staff in procedure 16:00:10 Case Start 16:00:13 20 mL 1% XYLOCAINE given in lab by Maria A Donis in Right Groin via Subcutaneous. 16:00:25 25 mcg FENTANYL given in lab by Clary Gillespie RN in Left Antecubital via Peripheral IV. 16:01:49 HR=79 bpm, BMZL=105/62 mmhg, SpO2=97.0 %, Resp=15 B/min, Pain=5, Natacha=10, Jacobo=2 16:01:58 Access site was Right Femoral Artery using ultrasound 16:02:19 Access site was Right Femoral Artery. A PIGTAIL ANG. INFINITI CATHETER FR 5 was advanced over a wire. OMNIPAQUE, 350 MG, 150ML 150ML was used 16:02:50 for injections. 16:04:15 The LV was injected at 10 cc/sec for a total of 30. OMNIPAQUE, 300 MG, 50ML 50ML used. Recorded Pressure: LV, HR=85, Condition=Condition 1 16:04:58 (Left Ventricle) LV 100/10/14 Recorded Pressure: LV, Ao, HR=85, Condition=Condition 1 16:05:06 (Left Ventricle) LV 102/9/13, (Aorta) Ao 102/69/85 16:05:45 Catheter was removed A JL 4.0 INFINITI CATHETER FR 5 was advanced over a wire. OMNIPAQUE, 350 MG, 150ML 150ML was us ed for 16:05:46 injections. 16:06:52 HR=81 bpm, VGRM=798/65 mmhg, Resp=18 B/min, Pain=5, Natacha=10, Jacobo=2 16:06:57 The LCA was injected and visualized at various angles. OMNIPAQUE, 350 MG, 150ML 150ML used . Recorded Pressure: Ao, HR=85, Condition=Condition 1 16:07:15 (Aorta) Ao 110/77/93 16:08:44 Catheter was removed A AR MOD INFINITI CATHETER FR 5 was advanced over a wire. OMNIPAQUE, 350 MG, 150ML 150ML was us ed for 16:08:57 injections. 16:11:06 The RCA was injected and visualized at various angles. OMNIPAQUE, 350 MG, 150ML 150ML used . 16:11:53 HR=83 bpm, JHUI=504/67 mmhg, SpO2=97.0 %, Resp=14 B/min, Pain=5, Natacha=10, Jacobo=2 16:12:25 Catheter was removed 16:13:43 Case End 16:16:30 1 mg VERSED given in lab by Clary Gillespie, RN in Left Antecubital via Peripheral IV. 16:16:41 An injection in the Fem Art (right) was made through the SHEATH, FR5 TERUMO (10CM) FR 5. 16:16:54 HR=85 bpm, VWET=028/69 mmhg, SpO2=93.0 %, Resp=15 B/min, Pain=5, Natacha=10, Jacobo=2 16:17:06 VASCADE, FR5 CLOSURE SYSTEM FR 5 placement in the Fem Art (right) 16:17:34 50 mcg FENTANYL given in lab by Clary Gillespie, RN in Left Antecubital via Peripheral IV. 16:17:48 Pressure applied to access site. 16:19:51 Catheter(s) removed without difficulty 16:19:59 No case complications noted. 16:20:01 Cine recording checked. 16:20:04 Bedside Report will be given. 16:20:07 Implantable Device card placed in patient's chart. 16:20:08 Contrast Scanned 16:20:12 A Left Heart Cath was performed. 16:21:57 HR=84 bpm, RYZW=778/66 mmhg, Resp=15 B/min, Pain=5, Natacha=10, Jacobo=2 16:26:56 HR=82 bpm, QTUR=281/55 mmhg, SpO2=95.0 %, Resp=16 B/min, Pain=5, Natacha=10, Jacobo=2 16:33:28 HR=81 bpm, TYFV=796/65 mmhg, SpO2=93.0 %, Resp=17 B/min, Pain=5, Natacha=10, Jacobo=2 16:37:01 XDKI=711/49 mmhg, SpO2=96.0 %, Pain=5, Natacha=10, Jacobo=2 16:37:53 Sterile dressing applied to site 16:41:27 [facility] - Contrast Media Used In Study Contrast Total Opened (mL) Total Used (mL) Total Wasted (mL) Omnipaque 90 90 0 End Study - Maximum Contrast Load Max Contrast Load (mL) 541.7 End Study - Radiation Exposure Fluoro Time (minutes) 3.4 End Study - Patient Disposition Complications Transferred To Interventional Outcome No Spanish Literature Professor Holding No attempt made
[2017-08-21] MEDS ORDERED: SODIUM CHLOR 0.9% 1000 ML INJ 500 ML IV SCH (16:44)
[2017-08-21 17:21] LABS: HDL CHOLESTEROL 31.2 MG/DL (40.0-60.0)
[2017-08-21] MEDS ORDERED: traZODone HCL 100 MG TAB PO PRN (21:00)
[2017-08-22] VITALS (13 sets, daily range): BP systolic 139–147; BP diastolic 74–83; PULSE 59–92; RESP 16–19; TEMP 97.6–98.2; O2SAT 95–97
[2017-08-22] MEDS: traMADol HCL 50 MG TAB PO PRN (03:54)
[2017-08-22 06:19] LABS: BICARBONATE 22.7 MEQ/L (21.0-32.0)
--- NOTE | 2017-08-22 07:35 | MA ---
cc: REBECCA KAYE DATE 08/21/2017 INDICATION Unstable angina, high-risk nuclear marker perfusion study, coronary artery disease, history of coronary intervention. PROCEDURE PERFORMED 1. Retrograde left heart catheterization with left ventriculography and selective coronary angiography 2. Moderate sedation ACCESS SITE Right femoral artery EQUIPMENT USED A 5-Beninese pigtail catheter, 5-Beninese JL-4 and AR modified coronary catheters. MEDICATIONS Versed IV, Benadryl IV, Fentanyl IV. CONTRAST Omnipaque 90 cc COMPLICATIONS None BLOOD LOSS Less than 10 cc METHOD OF HEMOSTASIS Vascade closure RESULTS HEMODYNAMICS Heart rate 82 beats per minute. Left end-diastolic pressure 9 mmHg, left ventricle 105/9, aorta 105/77/93. LEFT VENTRICULOGRAPHY Left ventricular ejection fraction 58%. Wall motion normal. No mitral regurgitation. CORONARY ANGIOGRAPHY The left main coronary artery patent. The left anterior descending coronary artery has 70% stenosis in the distal apical portion. There is a patent stent in the midportion. The first diagonal artery patent. The left circumflex artery is totally occluded in the midportion distally to the first marginal branch. OM1 is patent with patent stent. The distal circumflex has bilateral [id number] collaterals. The right coronary right coronary is a dominant vessel which fills by [id number] and right to right collaterals. It is totally occluded in the mid portion. DIAGNOSIS 1. Severe multivessel coronary disease with total occlusion of the mid left circumflex artery and mid right coronary with distal vessel filling by collaterals. 2. Borderline normal left ventricular systolic function. DISPOSITION Mr. Terry was found to have evidence of severe multivessel coronary artery disease. This is unchanged from his previous cardiac catheterization in 2016. His left ventricular function remains preserved. I recommend to continue his current medical program including therapy for angina and aggressive modification of his cardiac risk factors. He was again strongly encouraged to quit smoking. He will follow up with his primary physician in his office after discharge. MD MARIXA Rocha/CHARU /4:24 PM /7:08 AM
[2017-08-22] MEDS ORDERED: ASPIRIN 325 MG TAB PO SCH (09:00)
[2017-08-22] MEDS: ATORVASTATIN 80 MG TAB PO SCH (09:00)
[2017-08-22] MEDS: PANTOPRAZOLE SOD 40 MG DELAYED RELEASE TAB PO SCH (09:01)
[2017-08-22] MEDS: LISINOPRIL 20 MG TAB PO SCH (09:01)
[2017-08-22] MEDS: EZETIMIBE 10 MG TAB PO SCH (09:01)
[2017-08-22] MEDS: METOPROLOL TARTRATE 25 MG TAB PO SCH (09:01)
[2017-08-22] MEDS: SPIRONOLACTONE 25 MG TAB PO SCH (09:02)
[2017-08-22] MEDS: NIFEdipine 60 MG SUSTAINED RELEASE TAB PO SCH (09:02)
[2017-08-22] MEDS: FENOFIBRATE 145 MG TAB PO SCH (09:02)
[2017-08-22] MEDS ORDERED: PNEUMOCOCCAL POLYVALENT INJ 25 MCG/0.5 ML SYR IM ONE (10:00)
[2017-08-22] MEDS ORDERED: INFLUENZA VIRUS VACCINE (QUADRIVALENT) 0.5 ML SYR IM ONE (10:00)
--- NOTE | 2017-08-22 10:45 | TR ---
Date Performed: 08/21/2017 Time Performed: 10:11:14 DOCTOR: Ivan Maurice DRUG LIST: NORVASC Aspirin ATENOLOL CATAPRES [id number] CLINICAL HISTORY: ASTHMA ANGINA HYPERTENSION CHEST PAIN CATH WITH STENTS REASON FOR TEST: Angina REASON FOR ENDING: OBSERVATION: CONCLUSION: Lexiscan stress test was performed under standard four minute protocol. Radionuclide was injected one minute prior to ending the test. No electrocardiographic abormalities were present to suggest ischemia. Nuclear imaging and interpretation are pending. COMMENTS:
--- NOTE | 2017-08-22 14:33 | HHI.PR ---
Subjective Remarks pt seen this morning around 10 AM. Says he is feeling well. Denies any chest pain or shortness of breath. Denies any nausea or vomiting. Feels like going home. Objective Vital Signs Date Time Temp Pulse Resp B/P (MAP) Pulse Ox O2 Delivery O2 Flow Rate FiO2 08/22/17 11:00 97.9 92 16 139/74 (95) 97 08/22/17 11:00 82 08/22/17 10:00 88 08/22/17 09:00 84 08/22/17 08:00 92 08/22/17 07:00 84 08/22/17 07:00 97.6 88 18 147/83 (104) 97 08/22/17 06:06 84 08/22/17 05:55 89 08/22/17 04:28 83 08/22/17 03:56 98.2 83 19 147/83 (104) 95 08/22/17 03:17 59 08/22/17 02:38 70 08/22/17 01:31 82 08/22/17 00:00 72 08/21/17 23:00 75 08/21/17 23:00 98.0 83 18 130/80 (97) 95 08/21/17 22:00 80 08/21/17 21:00 82 08/21/17 20:00 80 08/21/17 19:45 79 08/21/17 19:45 97.6 90 18 146/79 (101) 96 08/21/17 18:15 86 08/21/17 17:39 18 08/21/17 17:38 18 08/21/17 17:05 97.5 80 18 107/70 (82) 98 08/21/17 17:05 76 I/O 08/21/17 08/21/17 08/21/17 08/22/17 08/22/17 08/22/17 07:00 15:00 23:00 07:00 15:00 23:00 Intake Total 1460 ml Output Total 510 ml Balance 950 ml Intake Oral 960 ml IV Total 500 ml Output Urine Total 510 ml # Voids 2 Result Diagram: 08/20/17 1705 08/22/17 0514 Objective Remarks GENERAL: Patient sitting up in chair. Appears couple. Alert and oriented 3. SKIN: Warm and dry. HEAD: Normocephalic. EYES: No scleral icterus. No injection or drainage. NECK: Supple, trachea midline. No JVD. CARDIOVASCULAR: Regular rate and rhythm without murmurs, gallops, or rubs. RESPIRATORY: Breath sounds equal bilaterally. No accessory muscle use. GASTROINTESTINAL: Abdomen soft, non-tender, nondistended. MUSCULOSKELETAL: No cyanosis, or edema. BACK: Nontender without obvious deformity. No CVA tenderness. A/P Assessment and Plan //Chest pain: // CAD. -He has had serial cardiac enzymes and EKGs for ruling out purposes and has been seen by Dr. Maury Grimes of cardiology in the [facility]. He will undergo a Lexiscan be discharged nonischemic. = 08/22 Lexiscan with multiple areas of ischemia. Patient underwent cardiac catheterization with severe multivessel coronary disease with total occlusion of mid left circumflex artery and mid right coronary with distal vessel filling by collaterals. Cardiology recommends continue current medical management. I discussed with patient the need for him to quit smoking, as well as recommend discontinuation of bilateral, which he agrees to. //Hypertension: Continue current medication. //Hyperlipidemia: Continue current medication. //Tobacco abuse. Cessation counseling provided. //Psychosis. Likely secondary to stress. Follow with primary care. //Attention deficit disorder. Patient reports starting Adderall 6 months ago. Says he does not need this medication. He will discontinue. //Suspected sleep apnea. Patient will pursue workup with his primary care doctor. //GERD: Continue current medication. Discharge Planning Discharge home in good condition. Continue heart healthy diet. Activity ad yovani. Please see discharge medication list. Follow-up with cardiology and primary care. Cipriano Daniels MD Aug 22, 2017 14:33
--- NOTE | 2017-08-22 15:20 | PD.CARD.PN ---
Subjective Subjective Remarks No CP or SOB, feels better Objective Medications Active Medications Aspirin (Aspirin) 325 mg DAILY PO Last administered on 08/22/17 09:02; Admin Dose 325 MG; Start 08/22/17 at 09:00; Stop 08/22/17 at 12:16; Status DC Diphenhydramine HCl (Benadryl Inj) 50 mg STK-MED ONCE .ROUTE Last administered on 08/21/17 15:30; Admin Dose 50 MG; Start 08/21/17 at 15:29; Stop 08/21/17 at 15:30; Status DC Fentanyl Citrate (fentaNYL INJ) 100 mcg STK-MED ONCE .ROUTE Last administered on 08/21/17 15:34; Admin Dose 100 MCG; Start 08/21/17 at 15:26; Stop 08/21/17 at 15:27; Status DC Fentanyl Citrate (fentaNYL INJ) 100 mcg STK-MED ONCE .ROUTE Last administered on 08/21/17 15:54; Admin Dose 100 MCG; Start 08/21/17 at 15:48; Stop 08/21/17 at 15:49; Status DC Heparin Sodium/ Sodium Chloride 1,000 ml @ As Directed STK-MED ONCE .ROUTE Last administered on 08/21/17 15:24; Admin Dose 500 MLS/HR; Start 08/21/17 at 15:24; Stop 08/21/17 at 15:25; Status DC Influenza Virus Vaccine (Flu (Quadrivalent) Vaccine Inj) 0.5 ml ONCE ONCE IM Last administered on 08/22/17 11:38; Admin Dose 0.5 ML; Start 08/22/17 at 10:00 ; Stop 08/22/17 at 10:01; Status DC Midazolam HCl (Versed Inj) 5 mg STK-MED ONCE .ROUTE Last administered on 15:33; Admin Dose 5 MG; Start 08/21/17 at 15:26; Stop 08/21/17 at 15:27; Status DC Midazolam HCl (Versed Inj) 5 mg STK-MED ONCE .ROUTE Last administered on 15:53; Admin Dose 5 MG; Start 08/21/17 at 15:48; Stop 08/21/17 at 15:49; Status DC Pneumococcal Polyvalent Vaccine (Pneumovax-23 Inj) 25 mcg ONCE ONCE IM Last administered on 08/22/17t 11:37; Admin Dose 25 MCG; Start 08/22/17 at 10:00; Stop 08/22/17 at 10:01; Status DC Sodium Chloride 500 ml @ 100 mls/hr Q5H IV Last administered on 08/21/17t 16:44 ; Admin Dose 100 MLS/HR; Start 08/21/17 at 16:44; Stop 08/21/17 at 20:43; Status DC Trazodone HCl (Desyrel) 100 mg HS PRN PO; Start 08/21/17 at 21:00; Stop at 12:16; Status DC Vital Signs / I&O Vital Signs Date Time Temp Pulse Resp B/P (MAP) Pulse Ox O2 Delivery O2 Flow Rate FiO2 08/22/17 11:00 97.9 92 16 139/74 (95) 97 08/22/17 11:00 82 08/22/17 10:00 88 08/22/17 09:00 84 08/22/17 08:00 92 08/22/17 07:00 84 08/22/17 07:00 97.6 88 18 147/83 (104) 97 08/22/17 06:06 84 08/22/17 05:55 89 08/22/17 04:28 83 08/22/17 03:56 98.2 83 19 147/83 (104) 95 08/22/17 03:17 59 08/22/17 02:38 70 08/22/17 01:31 82 08/22/17 00:00 72 08/21/17 23:00 75 08/21/17 23:00 98.0 83 18 130/80 (97) 95 08/21/17 22:00 80 08/21/17 21:00 82 08/21/17 20:00 80 08/21/17 19:45 79 08/21/17 19:45 97.6 90 18 146/79 (101) 96 08/21/17 18:15 86 08/21/17 17:39 18 08/21/17 17:38 18 08/21/17 17:05 97.5 80 18 107/70 (82) 98 08/21/17 17:05 76 I/O 08/21/17 08/21/17 08/21/17 08/22/1708/22/17 9/21/17 06:59 14:59 22:59 06:59 14:59 22:59 Intake Total 1460 ml Output Total 510 ml Balance 950 ml Intake Oral 960 ml IV Total 500 ml Output Urine Total 510 ml # Voids 2 Physical Exam GENERAL: In NAD. SKIN: Warm and dry. HEAD: Normocephalic. EYES: No scleral icterus. No injection or drainage. NECK: Supple, trachea midline. No JVD or lymphadenopathy. CARDIOVASCULAR: Regular rate and rhythm without murmurs, gallops, or rubs. RESPIRATORY: Breath sounds equal bilaterally. No accessory muscle use. GASTROINTESTINAL: Abdomen soft, non-tender, nondistended. MUSCULOSKELETAL: No cyanosis, or edema. Laboratory Laboratory Tests Test 08/22/17 05:14 Blood Urea Nitrogen 16 MG/DL Creatinine 1.01 MG/DL Random Glucose 115 MG/DL Calcium Level 8.9 MG/DL Sodium Level 134 MEQ/L Potassium Level 4.0 MEQ/L Chloride Level 104 MEQ/L Carbon Dioxide Level 22.7 MEQ/L Anion Gap 7 MEQ/L Estimat Glomerular Filtration Rate 79 ML/MIN Assessment and Plan Problem List: (1) Chest pain ICD Codes: R07.9 - Chest pain Status: Acute (2) CAD (coronary artery disease) ICD Codes: I25.10 - CAD (coronary artery disease) Status: Acute (3) Hypertension ICD Codes: I10 - Hypertension Status: Acute (4) Hyperlipidemia ICD Codes: E78.5 - Hyperlipidemia Status: Acute (5) H/O heart artery stent ICD Codes: Z95.5 - H/O heart artery stent Status: Acute Assessment and Plan No angina or CHF symptoms. Cath w cx and RCA occlusion with distal vessels filling by collaterals. Continue aggressive risk factor modification. Strongly encouraged to quit smoking. DC home today. F/u w PCP. Maria A Donis MD Aug 22, 2017 15:19
== END 2017-08-22 12:14 | disposition home or self-care (01) ==
LOC: NEPC 16:42 → NEDA 21:05 → NEPFCDU 22:33 → HCIS 08-21 16:10 → HCIN 08-21 17:00
PROVIDERS: ADMIT Internal Medicine; ATTEND Internal Medicine
DX: I25.110 Atherosclerotic heart disease of native coronary artery with unstable angina pectoris (principal); I25.2 Old myocardial infarction; I10 Essential (primary) hypertension; E78.00 Pure hypercholesterolemia, unspecified; K21.9 Gastro-esophageal reflux disease without esophagitis; R11.0 Nausea; R94.31 Abnormal electrocardiogram [ECG] [EKG]; Z95.5 Presence of coronary angioplasty implant and graft; Z23 Encounter for immunization
CPT/HCPCS: 71010; 78452; 80048; 80053; 80061; 82550; 83735; 84484; 85025; 85610; 85730; 90471; 90472; 90686; 90732; 93005; 93017; 93458; 96361; 96374; 96375; 99285; A9502; C1760; C1769; C1893; G0008; G0009; G0269; G0378; J1200; J1644; J2250; J2785; J2930; J3010; J7030; Q2038; Q9967